=== PATIENT | male | born 1970 | race Caucasian/White ===

== ENCOUNTER 2016-12-01 13:31 | Day surgery (SDC) | payer OTHER ==
[~2016-12-01] VITALS: Ht 193 cm; Wt 151.0 kg
[~2016-12-01 13:31] MED LIST: AMOX-291 PO; BACL20TA PO; FLUT9.9S NS; LEVO175T5 PO; METH-356 PO; ONDA4TAB7 PO; RANI150T8 PO; VARE1TAB21 PO
[2016-12-01 14:12] VITALS: BP 144/85
[2016-12-01] MEDS ORDERED: SODIUM CHLORIDE 0.9% 1,000 ML IV SCH (14:17)
[2016-12-01] MEDS ORDERED: METHADONE 10 MG TABLET PO SCH (17:00)
== END 2016-12-01 17:25 | disposition home or self-care (01) ==
LOC: RAD 13:31
PROVIDERS: ATTEND Neurological Surgery
DX: M48.06 Spinal stenosis, lumbar region (principal)
CPT/HCPCS: 62284; 72132; 77003

== ENCOUNTER → 2016-12-22 | Outpatient (CLI) | payer OTHER ==
[~2016-12-22] MED LIST changes: +AMIT150T PO; +LEVO175T2 PO; +METF500T PO; +Testosterone INJ
[2016-12-22 12:47] LABS: ASPARTATE AMINO TRANSFERASE 24 U/L (15-37); BLOOD UREA NITROGEN 8 mg/dL (7-18)
== END | disposition home or self-care (01) ==
LOC: STAR 11:11
PROVIDERS: ATTEND Neurological Surgery
DX: Z01.811 Encounter for preprocedural respiratory examination (principal); M48.06 Spinal stenosis, lumbar region; E11.9 Type 2 diabetes mellitus without complications; R79.1 Abnormal coagulation profile
CPT/HCPCS: 36415; 71020; 80053; 85025; 85610; 85730; 93005

== ENCOUNTER 2016-12-29 09:46 | Inpatient (IN) | payer OTHER ==
[~2016-12-29] VITALS: Ht 193 cm; Wt 173.0 kg
[~2016-12-29 09:46] MED LIST changes: +BACITRACIN 50,000 UNIT ONE; +BUPIVACAINE/PF-EPI 0.5% 1:200K ONE; +THROMBIN 20,000 UNIT VIAL TP ONE
[2016-12-29] MEDS ORDERED: LACTATED RINGERS 1,000 ML IV SCH (10:07)
[2016-12-29 10:34] VITALS: BP 119/79
[2016-12-29] MEDS ORDERED: KETAMINE 100 MG/ML, 5ML ONE (14:25)
[2016-12-29] MEDS ORDERED: LIDOCAINE/DEX 5% IV,2GM/500ML 500 ML IV ONE (14:28)
[2016-12-29] MEDS ORDERED: PROPOFOL 10 MG/ML, 50ML ONE (15:00)
[2016-12-29] MEDS ORDERED: CEFAZOLIN 1,000 MG ONE (15:00)
[2016-12-29] MEDS ORDERED: ONDANSETRON 2MG/ML, 2ML ONE (15:00)
[2016-12-29] MEDS ORDERED: SUCCINYLCHOLINE 20 MG/ML, 10ML ONE (15:00)
[2016-12-29] MEDS ORDERED: HYDROmorphone 2 MG/ML, 1ML ONE (15:16)
[2016-12-29] MEDS ORDERED: BUPIVACAINE/PF-EPI 0.5% 1:200K INFIL ONE (16:09)
[2016-12-29] MEDS ORDERED: NEOSPORIN OINT, 15GM ONE (17:19)
[2016-12-29] MEDS ORDERED: MIDAZOLAM 1 MG/ML, 2ML ONE (17:51)
[2016-12-29] MEDS ORDERED: PROMETHAZINE 25 MG/ML, 1ML IV PRN (18:30)
[2016-12-29] MEDS ORDERED: EPHEDRINE 50 MG/ML, 1ML IVPush PRN (18:30)
[2016-12-29] MEDS ORDERED: LABETALOL 5MG/ML, 20ML IV PRN (18:30)
[2016-12-29] MEDS ORDERED: HYDROcodone/APAP 7.5-325MG/15ML UDC PO PRN (18:30)
[2016-12-29] MEDS ORDERED: MEPERIDINE/PF 25MG/0.5ML IVPush PRN (18:30)
[2016-12-29] MEDS ORDERED: hydrALAzine 20 MG/ML, 1ML IV PRN (18:30)
[2016-12-29] MEDS ORDERED: ACETAMINOPHEN 325 MG TABLET PO PRN (18:30)
[2016-12-29] MEDS ORDERED: OXYcodone 5 MG/5 ML ORAL.SOL UDC PO PRN (18:30)
[2016-12-29] MEDS ORDERED: FENTANYL PF 100 MCG/2ML IV PRN (18:30)
[2016-12-29] MEDS ORDERED: ONDANSETRON 2MG/ML, 2ML IVPush PRN (18:30)
[2016-12-29] MEDS ORDERED: MIDAZOLAM 1 MG/ML, 2ML IV PRN (18:30)
[2016-12-29] MEDS ORDERED: HYDROmorphone 1 MG/ML, 1ML IV PRN (18:30)
[2016-12-29] MEDS ORDERED: HYDROmorphone PCA 30 MG/30 ML ONE (19:22)
[2016-12-29] MEDS ORDERED: HYDROmorphone PCA 30 MG/30 ML IV PRN (19:30)
[2016-12-29] MEDS ORDERED: ONDANSETRON 2MG/ML, 2ML IV PRN (20:30)
[2016-12-29] MEDS ORDERED: DIPHENHYDRAMINE 50 MG/ML, 1ML IVPush PRN (20:30)
[2016-12-29] MEDS ORDERED: HYDROcodone/APAP 5/325 TABLET PO PRN (20:30)
[2016-12-29] MEDS ORDERED: morphine SULFATE 10 MG/ML, 1ML IV PRN (20:30)
[2016-12-29] MEDS ORDERED: NS + 20MEQ KCL 1,000 ML IV SCH (20:30)
[2016-12-29] MEDS ORDERED: GLUCAGON 1 MG IM PRN (20:30)
[2016-12-29] MEDS ORDERED: PROMETHAZINE 25 MG/ML, 1ML IM PRN (20:30)
[2016-12-29] MEDS ORDERED: OXYcodone/APAP 5/325MG TABLET PO PRN (20:30)
[2016-12-29] MEDS ORDERED: DIPHENHYDRAMINE 50 MG/ML, 1ML IM PRN (20:30)
[2016-12-29] MEDS ORDERED: BISACODYL 10 MG SUPP PR PRN (20:30)
[2016-12-29] MEDS ORDERED: DIPHENHYDRAMINE 50 MG CAPSULE PO PRN (20:30)
[2016-12-29] MEDS ORDERED: DEXTROSE 50%, 50ML SYRINGE IVPush PRN (20:30)
[2016-12-29] MEDS ORDERED: DEXTROSE 4 GM TAB.CHEW PO PRN (20:30)
[2016-12-29] MEDS ORDERED: METHOCARBAMOL 1,000 MG in DEXTROSE 5% 100 ML IV ONE (21:00)
[2016-12-29] MEDS ORDERED: INSULIN REGULAR 100 UNITS/ML, 3ML VIAL SQ-INSULIN SCH (21:00)
[2016-12-29] MEDS: AMITRIPTYLINE 50 MG TABLET PO SCH (21:06)
[2016-12-29] MEDS: FAMOTIDINE 20 MG TABLET PO SCH (21:06)
[2016-12-29] MEDS: metFORMIN XR 500 MG TAB.ER.24H PO SCH (21:08)
[2016-12-29] MEDS: SODIUM CHLORIDE FLUSH 10ML SYR IVF SCH (21:13)
[2016-12-29] MEDS: METHADONE 10 MG TABLET PO SCH (21:13)
[2016-12-29] MEDS: INSULIN ASPART 100 UNITS/ML, PEN SQ-INSULIN SCH (21:23)
[2016-12-30] MEDS: FLUTICASONE NASAL SPRAY 16GM NAS SCH ×3 (00:08→21:00)
[2016-12-30] MEDS: CEFAZOLIN 3,000 MG in SODIUM CHLORIDE 0.9% 100 ML IVPB SCH ×2 (00:45→08:45)
[2016-12-30 04:51] LABS: BLOOD UREA NITROGEN 7 mg/dL (7-18)
[2016-12-30 04:54] LABS: ASPARTATE AMINO TRANSFERASE 53 U/L (15-37)
[2016-12-30] MEDS: METHOCARBAMOL 750 MG in DEXTROSE 5% 100 ML IV SCH ×3 (05:40→21:30)
[2016-12-30] MEDS: LEVOTHYROXINE 175 MCG TABLET PO SCH (05:40)
[2016-12-30] MEDS: INSULIN ASPART 100 UNITS/ML, PEN SQ-INSULIN SCH ×2 (08:00→17:57)
[2016-12-30] MEDS: METHADONE 10 MG TABLET PO SCH ×3 (08:54→22:45)
[2016-12-30] MEDS: SODIUM CHLORIDE FLUSH 10ML SYR IVF SCH ×2 (08:55→21:00)
[2016-12-30] MEDS: SENNA/DOCUSATE TABLET PO SCH (08:55)
[2016-12-30] MEDS ORDERED: FLUTICASONE/VILANTEROL 200-25MCG/INH INH SCH (09:00)
[2016-12-30 17:20] VITALS: BP 135/80
[2016-12-30 19:10] VITALS: BP 128/76
[2016-12-30] MEDS: metFORMIN XR 500 MG TAB.ER.24H PO SCH (22:30)
[2016-12-30] MEDS: ZOLPIDEM 5MG TABLET PO PRN (22:40)
[2016-12-30] MEDS: FAMOTIDINE 20 MG TABLET PO SCH (22:40)
[2016-12-30] MEDS: AMITRIPTYLINE 50 MG TABLET PO SCH (22:40)
[2016-12-31 00:11] VITALS: BP 124/76
[2016-12-31 03:22] VITALS: BP 124/83
[2016-12-31] MEDS: HYDROcodone/APAP 10/325 MG TABLET PO PRN ×4 (03:30→23:17)
[2016-12-31] MEDS: METHOCARBAMOL 750 MG in DEXTROSE 5% 100 ML IV SCH ×3 (06:17→22:51)
[2016-12-31] MEDS: LEVOTHYROXINE 175 MCG TABLET PO SCH (06:17)
[2016-12-31 08:26] VITALS: BP 139/83
[2016-12-31] MEDS: SENNA/DOCUSATE TABLET PO SCH (08:38)
[2016-12-31] MEDS: SODIUM CHLORIDE FLUSH 10ML SYR IVF SCH ×2 (08:38→22:54)
[2016-12-31] MEDS: METHADONE 10 MG TABLET PO SCH ×3 (08:38→22:51)
[2016-12-31] MEDS: INSULIN ASPART 100 UNITS/ML, PEN SQ-INSULIN SCH ×2 (08:38→16:09)
[2016-12-31] MEDS: FLUTICASONE NASAL SPRAY 16GM NAS SCH ×2 (08:39→21:00)
[2016-12-31 14:18] VITALS: BP 134/82
[2016-12-31 18:29] VITALS: BP 118/77
[2016-12-31] MEDS: AMITRIPTYLINE 50 MG TABLET PO SCH (22:51)
[2016-12-31] MEDS: FAMOTIDINE 20 MG TABLET PO SCH (22:51)
[2016-12-31] MEDS: metFORMIN XR 500 MG TAB.ER.24H PO SCH (23:02)
[2016-12-31] MEDS: ZOLPIDEM 5MG TABLET PO PRN (23:17)
[2017-01-01 01:12] VITALS: BP 119/77
[2017-01-01] MEDS: METHOCARBAMOL 750 MG TABLET PO SCH ×3 (05:00→21:41)
[2017-01-01] MEDS: LEVOTHYROXINE 175 MCG TABLET PO SCH (05:11)
[2017-01-01 06:09] LABS: BLOOD UREA NITROGEN 6 mg/dL (7-18)
[2017-01-01 06:35] VITALS: BP 129/85
[2017-01-01] MEDS ORDERED: DEXMEDETOMIDINE 200 MCG/2 ML ONE (06:59)
[2017-01-01] MEDS: INSULIN ASPART 100 UNITS/ML, PEN SQ-INSULIN SCH ×2 (07:28→16:42)
[2017-01-01] MEDS: SENNA/DOCUSATE TABLET PO SCH (08:18)
[2017-01-01] MEDS: METHADONE 10 MG TABLET PO SCH ×3 (08:18→21:41)
[2017-01-01] MEDS: FLUTICASONE NASAL SPRAY 16GM NAS SCH ×2 (08:19→21:40)
[2017-01-01] MEDS: HYDROmorphone 2 MG/ML, 1ML IV PRN ×4 (08:25→23:44)
[2017-01-01] MEDS: SODIUM CHLORIDE FLUSH 10ML SYR IVF SCH ×2 (08:28→21:40)
[2017-01-01] MEDS ORDERED: MIDAZOLAM 1 MG/ML, 2ML ONE (08:59)
[2017-01-01] MEDS ORDERED: HYDROmorphone 2 MG/ML, 1ML ONE (08:59)
[2017-01-01] MEDS ORDERED: FENTANYL PF 250 MCG/5ML ONE (08:59)
[2017-01-01] MEDS ORDERED: EPINEPHRINE 1 MG/ML, 1ML ONE (09:37)
[2017-01-01] MEDS ORDERED: BUPIVACAINE/PF 0.5% ONE (09:37)
[2017-01-01] MEDS ORDERED: THROMBIN 5,000 UNIT VIAL TP ONE (09:37)
[2017-01-01] MEDS ORDERED: BACITRACIN 50,000 UNIT ONE (09:38)
[2017-01-01] MEDS ORDERED: LIDOCAINE/DEX 5% IV,2GM/500ML 500 ML IV PRN (10:00)
[2017-01-01 14:47] VITALS: BP 133/81
[2017-01-01] MEDS: HYDROcodone/APAP 10/325 MG TABLET PO PRN ×3 (17:45→22:47)
[2017-01-01 19:49] VITALS: BP 117/81
[2017-01-01] MEDS: FAMOTIDINE 20 MG TABLET PO SCH (21:41)
[2017-01-01] MEDS: metFORMIN XR 500 MG TAB.ER.24H PO SCH (21:41)
[2017-01-01] MEDS: AMITRIPTYLINE 50 MG TABLET PO SCH (21:42)
[2017-01-02 02:44] VITALS: BP 142/91
[2017-01-02] MEDS: METHOCARBAMOL 750 MG TABLET PO SCH ×3 (05:00→21:44)
[2017-01-02] MEDS: HYDROmorphone 2 MG/ML, 1ML IV PRN ×3 (05:43→19:06)
[2017-01-02] MEDS: LEVOTHYROXINE 175 MCG TABLET PO SCH (05:44)
[2017-01-02 07:25] VITALS: BP 130/71
[2017-01-02] MEDS ORDERED: DEXAMETHASONE 4 MG/ML, 1ML ONE (07:39)
[2017-01-02] MEDS ORDERED: PROPOFOL 10 MG/ML, 50ML ONE (07:39)
[2017-01-02] MEDS ORDERED: METOPROLOL 1 MG/ML, 5ML ONE (07:39)
[2017-01-02] MEDS ORDERED: ONDANSETRON 2MG/ML, 2ML ONE (07:39)
[2017-01-02] MEDS ORDERED: PROPOFOL 10 MG/ML, 20ML ONE (07:39)
[2017-01-02] MEDS ORDERED: CEFAZOLIN 1,000 MG ONE (07:39)
[2017-01-02] MEDS: INSULIN ASPART 100 UNITS/ML, PEN SQ-INSULIN SCH ×2 (08:00→16:55)
[2017-01-02] MEDS: METHADONE 10 MG TABLET PO SCH ×3 (08:42→21:47)
[2017-01-02] MEDS: FLUTICASONE NASAL SPRAY 16GM NAS SCH ×2 (08:42→21:00)
[2017-01-02] MEDS: SENNA/DOCUSATE TABLET PO SCH (08:45)
[2017-01-02] MEDS: SODIUM CHLORIDE FLUSH 10ML SYR IVF SCH ×2 (08:45→21:44)
[2017-01-02] MEDS ORDERED: TESTOSTERONE CYPIONATE 200 MG/ML IM SCH (09:00)
[2017-01-02] MEDS ORDERED: BACITRACIN OINT 500U/GM, 15 GM ONE (09:40)
[2017-01-02] MEDS ORDERED: THROMBIN 20,000 UNIT VIAL TP ONE (09:40)
[2017-01-02] MEDS ORDERED: BUPIVACAINE/PF-EPI 0.5% 1:200K ONE (09:40)
[2017-01-02] MEDS ORDERED: BACITRACIN 50,000 UNIT ONE (09:41)
[2017-01-02] MEDS ORDERED: KETAMINE 10 MG/ML, 20ML ONE (09:47)
[2017-01-02] MEDS ORDERED: FENTANYL PF 250 MCG/5ML ONE (09:47)
[2017-01-02] MEDS ORDERED: MIDAZOLAM 1 MG/ML, 2ML ONE ×2 (09:47→15:12)
[2017-01-02] MEDS ORDERED: BUPIVACAINE/PF-EPI 0.5% 1:200K IM ONE ×3 (11:48→11:49)
[2017-01-02] MEDS ORDERED: OXYcodone 5 MG/5 ML ORAL.SOL UDC PO PRN (12:00)
[2017-01-02] MEDS ORDERED: FENTANYL PF 100 MCG/2ML IV PRN (12:00)
[2017-01-02] MEDS ORDERED: hydrALAzine 20 MG/ML, 1ML IV PRN (12:00)
[2017-01-02] MEDS ORDERED: MEPERIDINE/PF 25MG/0.5ML IVPush PRN (12:00)
[2017-01-02] MEDS ORDERED: PROMETHAZINE 25 MG/ML, 1ML IV PRN (12:00)
[2017-01-02] MEDS ORDERED: ALBUTEROL/IPRATROPIUM 2.5MG/0.5MG, 3 ML NPPB PRN (12:00)
[2017-01-02] MEDS ORDERED: MIDAZOLAM 1 MG/ML, 2ML IV PRN (12:00)
[2017-01-02] MEDS ORDERED: ACETAMINOPHEN 325 MG TABLET PO PRN (12:00)
[2017-01-02] MEDS ORDERED: HYDROmorphone 1 MG/ML, 1ML IV PRN (12:00)
[2017-01-02] MEDS ORDERED: METOPROLOL 1 MG/ML, 5ML IV PRN (12:00)
[2017-01-02] MEDS ORDERED: HYDROmorphone 2 MG/ML, 1ML ONE (12:41)
[2017-01-02] MEDS ORDERED: VANCOMYCIN 1,000 MG ONE (13:38)
[2017-01-02 16:16] LABS: ABG COLLECTION SITE RIGHT RADIAL; COLLATERAL CIRCULATION TESTING NORMAL
[2017-01-02] MEDS ORDERED: SODIUM CHLORIDE 0.9% 1,000 ML IV SCH (17:00)
[2017-01-02] MEDS ORDERED: PROPOFOL 100 ML IV ONE (17:37)
[2017-01-02] MEDS: PROPOFOL 100 ML IV PRN ×2 (17:56→23:34)
[2017-01-02] MEDS ORDERED: PROPOFOL 100 ML IV PRN (18:33)
[2017-01-02] MEDS: ALBUTEROL/IPRATROPIUM 2.5MG/0.5MG, 3 ML INLINE SCH ×2 (19:00→23:00)
[2017-01-02] MEDS ORDERED: PHARMACY MAY ADJ FOR RENAL FX MC SCH (19:00)
[2017-01-02] MEDS ORDERED: LIDOCAINE-MPF 1%, 2ML ENDO PRN (19:00)
[2017-01-02] MEDS ORDERED: MAGNESIUM HYDROXIDE 8%, 30ML UDC PO PRN (20:00)
[2017-01-02] MEDS ORDERED: HYDROmorphone 2 MG/ML, 1ML IM PRN (20:00)
[2017-01-02] MEDS ORDERED: HYDROmorphone 2MG TABLET PO PRN (20:00)
[2017-01-02] MEDS ORDERED: PROMETHAZINE 25 MG/ML, 1ML IM PRN (20:00)
[2017-01-02] MEDS ORDERED: ONDANSETRON 2MG/ML, 2ML IV PRN (20:00)
[2017-01-02] MEDS ORDERED: OXYcodone/APAP 5/325MG TABLET PO PRN (20:00)
[2017-01-02] MEDS ORDERED: HYDROmorphone PCA 30 MG/30 ML IV PRN (20:00)
[2017-01-02] MEDS ORDERED: METHOCARBAMOL 750 MG TABLET PO PRN (20:00)
[2017-01-02] MEDS ORDERED: BISACODYL 10 MG SUPP PR PRN (20:00)
[2017-01-02] MEDS: CEFAZOLIN PMX 1GM/50ML 50 ML IVPB SCH (20:09)
[2017-01-02] MEDS: NS + 20MEQ KCL 1,000 ML IV SCH (20:09)
[2017-01-02] MEDS: INSULIN REGULAR 100 UNITS/ML, 3ML VIAL SQ-INSULIN SCH (21:00)
[2017-01-02] MEDS: metFORMIN XR 500 MG TAB.ER.24H PO SCH (21:00)
[2017-01-02] MEDS: CEFAZOLIN PMX 2GM/50ML 50 ML IV SCH (21:28)
[2017-01-02] MEDS: AMITRIPTYLINE 50 MG TABLET PO SCH (21:45)
[2017-01-02] MEDS: FAMOTIDINE 20 MG TABLET PO SCH (21:45)
[2017-01-02] MEDS: HYDROcodone/APAP 10/325 MG TABLET PO PRN (22:23)
[2017-01-03] MEDS: ALBUTEROL/IPRATROPIUM 2.5MG/0.5MG, 3 ML INLINE SCH ×2 (02:18→07:25)
[2017-01-03] MEDS: PROPOFOL 100 ML IV PRN ×3 (02:23→07:22)
[2017-01-03] MEDS: CEFAZOLIN PMX 1GM/50ML 50 ML IVPB SCH ×2 (04:12→12:12)
[2017-01-03 04:22] LABS: ABG COLLECTION SITE LEFT RADIAL; COLLATERAL CIRCULATION TESTING NORMAL
[2017-01-03 04:38] LABS: BLOOD UREA NITROGEN 12 mg/dL (7-18)
[2017-01-03] MEDS: METHOCARBAMOL 750 MG TABLET PO SCH ×3 (05:33→21:45)
[2017-01-03] MEDS: LEVOTHYROXINE 175 MCG TABLET PO SCH (05:34)
[2017-01-03] MEDS: CEFAZOLIN PMX 2GM/50ML 50 ML IV SCH ×2 (05:34→13:18)
[2017-01-03] MEDS: INSULIN REGULAR 100 UNITS/ML, 3ML VIAL SQ-INSULIN SCH ×3 (07:00→16:00)
[2017-01-03] MEDS: SODIUM CHLORIDE FLUSH 10ML SYR IVF SCH ×2 (07:35→21:43)
[2017-01-03] MEDS: FLUTICASONE NASAL SPRAY 16GM NAS SCH ×2 (07:36→21:43)
[2017-01-03] MEDS: SENNA/DOCUSATE TABLET PO SCH (07:37)
[2017-01-03] MEDS: METHADONE 10 MG TABLET PO SCH ×3 (07:47→20:33)
[2017-01-03] MEDS: NS + 20MEQ KCL 1,000 ML IV SCH (07:50)
[2017-01-03] MEDS: INSULIN ASPART 100 UNITS/ML, PEN SQ-INSULIN SCH ×2 (07:53→17:00)
[2017-01-03] MEDS ORDERED: SENNA/DOCUSATE TABLET PO SCH (09:00)
[2017-01-03] MEDS: HYDROcodone/APAP 10/325 MG TABLET PO PRN ×3 (10:49→20:33)
[2017-01-03] MEDS: ALBUTEROL/IPRATROPIUM 2.5MG/0.5MG, 3 ML NPPB SCH ×2 (14:58→20:25)
[2017-01-03] MEDS: FAMOTIDINE 20 MG TABLET PO SCH (21:46)
[2017-01-03] MEDS: AMITRIPTYLINE 50 MG TABLET PO SCH (21:46)
[2017-01-03] MEDS: metFORMIN XR 500 MG TAB.ER.24H PO SCH (21:46)
[2017-01-04] MEDS: HYDROcodone/APAP 10/325 MG TABLET PO PRN ×4 (00:48→20:23)
[2017-01-04 04:38] LABS: ABG COLLECTION SITE LEFT RADIAL; COLLATERAL CIRCULATION TESTING NORMAL
[2017-01-04 04:53] LABS: BLOOD UREA NITROGEN 10 mg/dL (7-18)
[2017-01-04] MEDS: METHOCARBAMOL 750 MG TABLET PO SCH ×3 (05:03→21:35)
[2017-01-04] MEDS: LEVOTHYROXINE 175 MCG TABLET PO SCH (05:03)
[2017-01-04] MEDS: ALBUTEROL/IPRATROPIUM 2.5MG/0.5MG, 3 ML NPPB SCH (06:50)
[2017-01-04] MEDS: INSULIN ASPART 100 UNITS/ML, PEN SQ-INSULIN SCH ×2 (08:00→16:57)
[2017-01-04] MEDS: METHADONE 10 MG TABLET PO SCH ×4 (08:10→20:24)
[2017-01-04] MEDS: FLUTICASONE NASAL SPRAY 16GM NAS SCH ×2 (08:10→20:24)
[2017-01-04] MEDS: SENNA/DOCUSATE TABLET PO SCH (08:11)
[2017-01-04] MEDS: SODIUM CHLORIDE FLUSH 10ML SYR IVF SCH ×2 (08:11→20:24)
[2017-01-04] MEDS ORDERED: ALBUTEROL/IPRATROPIUM 2.5MG/0.5MG, 3 ML NPPB PRN (15:00)
[2017-01-04] MEDS: MAGNESIUM HYDROXIDE 8%, 30ML UDC PO PRN (16:56)
[2017-01-04 19:14] VITALS: BP 142/89
[2017-01-04] MEDS: metFORMIN XR 500 MG TAB.ER.24H PO SCH (20:25)
[2017-01-04] MEDS: AMITRIPTYLINE 50 MG TABLET PO SCH (20:25)
[2017-01-04] MEDS: FAMOTIDINE 20 MG TABLET PO SCH (20:25)
[2017-01-05] MEDS: HYDROcodone/APAP 10/325 MG TABLET PO PRN ×6 (00:50→22:26)
[2017-01-05 01:00] VITALS: BP 134/78
[2017-01-05] MEDS: ZOLPIDEM 5MG TABLET PO PRN ×2 (01:09→22:26)
[2017-01-05] MEDS: METHOCARBAMOL 750 MG TABLET PO SCH ×3 (05:40→22:26)
[2017-01-05] MEDS: METHADONE 10 MG TABLET PO SCH ×4 (05:46→21:04)
[2017-01-05] MEDS: LEVOTHYROXINE 175 MCG TABLET PO SCH (05:46)
[2017-01-05] MEDS: MAGNESIUM HYDROXIDE 8%, 30ML UDC PO PRN (06:06)
[2017-01-05 06:17] LABS: BLOOD UREA NITROGEN 10 mg/dL (7-18)
[2017-01-05] MEDS: INSULIN ASPART 100 UNITS/ML, PEN SQ-INSULIN SCH ×2 (07:53→16:29)
[2017-01-05 08:11] VITALS: BP 125/78
[2017-01-05] MEDS: SENNA/DOCUSATE TABLET PO SCH (09:44)
[2017-01-05] MEDS: POTASSIUM CHLORIDE 20 MEQ TAB.ER.PRT PO SCH ×2 (09:45→16:29)
[2017-01-05] MEDS: FLUTICASONE NASAL SPRAY 16GM NAS SCH ×2 (09:45→21:04)
[2017-01-05] MEDS: SODIUM CHLORIDE FLUSH 10ML SYR IVF SCH ×2 (09:46→21:04)
[2017-01-05 11:51] VITALS: BP 112/73
[2017-01-05 19:32] VITALS: BP 117/82
[2017-01-05] MEDS: FAMOTIDINE 20 MG TABLET PO SCH (21:04)
[2017-01-05] MEDS: metFORMIN XR 500 MG TAB.ER.24H PO SCH (21:05)
[2017-01-05] MEDS: AMITRIPTYLINE 50 MG TABLET PO SCH (21:05)
[2017-01-06 00:24] VITALS: BP 119/70
[2017-01-06] MEDS: HYDROcodone/APAP 10/325 MG TABLET PO PRN ×3 (02:17→09:56)
[2017-01-06 05:09] LABS: BLOOD UREA NITROGEN 9 mg/dL (7-18)
[2017-01-06] MEDS: METHOCARBAMOL 750 MG TABLET PO SCH (06:09)
[2017-01-06] MEDS: METHADONE 10 MG TABLET PO SCH ×2 (06:09→09:56)
[2017-01-06] MEDS: LEVOTHYROXINE 175 MCG TABLET PO SCH (06:10)
[2017-01-06] MEDS ORDERED: POTASSIUM CHLORIDE 20 MEQ TAB.ER.PRT PO ONE (07:30)
[2017-01-06] MEDS: INSULIN ASPART 100 UNITS/ML, PEN SQ-INSULIN SCH (08:07)
[2017-01-06] MEDS: SENNA/DOCUSATE TABLET PO SCH (08:40)
[2017-01-06] MEDS: SODIUM CHLORIDE FLUSH 10ML SYR IVF SCH (08:40)
[2017-01-06] MEDS: FLUTICASONE NASAL SPRAY 16GM NAS SCH (08:40)
[2017-01-06 09:35] VITALS: BP 117/78
[2017-01-06] MEDS ORDERED: HYDR-3307 PO (10:11)
[2017-01-06] MEDS ORDERED: METH750T87 PO (10:12)
[2017-01-06] MEDS ORDERED: SENN1TAB7 PO (10:15)
[2017-01-06] MEDS ORDERED: CALC300T4 PO (10:17)
[2017-01-06] MEDS ORDERED: CHOL10003 PO (10:18)
== END 2017-01-06 10:32 | disposition home or self-care (01) | DRG 453 ==
LOC: ORIP 09:46 → CCU 19:57 → 4NOR 12-30 17:27 → ICU 01-02 15:39 → 4NOR 01-04 18:22 → DCLOUNGE 01-06 10:09
PROVIDERS: ADMIT Neurological Surgery
PROC: 5A09357 Assistance with Respiratory Ventilation, Less than 24 Consecutive Hours, Continuous Positive Airway Pressure (ICD-10-PCS; 2016-12-29)
PROC: 0SP004Z Removal of Internal Fixation Device from Lumbar Vertebral Joint, Open Approach (ICD-10-PCS; principal; 2016-12-29 11:30)
PROC: 0SG0071 Fusion of Lumbar Vertebral Joint with Autologous Tissue Substitute, Posterior Approach, Posterior Column, Open Approach (ICD-10-PCS; 2017-01-02)
PROC: 0SB20ZZ Excision of Lumbar Vertebral Disc, Open Approach (ICD-10-PCS; 2017-01-02)
PROC: 01NB0ZZ Release Lumbar Nerve, Open Approach (ICD-10-PCS; 2017-01-02)
PROC: 0T9B70Z Drainage of Bladder with Drainage Device, Via Natural or Artificial Opening (ICD-10-PCS; 2017-01-02)
PROC: 0SG00A0 Fusion of Lumbar Vertebral Joint with Interbody Fusion Device, Anterior Approach, Anterior Column, Open Approach (ICD-10-PCS; 2017-01-02 10:00)
DX: M43.16 Spondylolisthesis, lumbar region (principal); J96.01 Acute respiratory failure with hypoxia; Z68.41 Body mass index [BMI] 40.0-44.9, adult; M48.06 Spinal stenosis, lumbar region; M53.2X6 Spinal instabilities, lumbar region; G89.4 Chronic pain syndrome; E03.9 Hypothyroidism, unspecified; E11.9 Type 2 diabetes mellitus without complications; E66.01 Morbid (severe) obesity due to excess calories; E29.1 Testicular hypofunction; G47.33 Obstructive sleep apnea (adult) (pediatric); K21.9 Gastro-esophageal reflux disease without esophagitis; I10 Essential (primary) hypertension; Z53.8 Procedure and treatment not carried out for other reasons; M54.16 Radiculopathy, lumbar region; Z79.891 Long term (current) use of opiate analgesic; Z88.2 Allergy status to sulfonamides; Z88.5 Allergy status to narcotic agent
CPT/HCPCS: 36415; 36600; 71010; 72100; 80048; 80053; 81001; 82803; 82962; 83735; 84478; 85025; 87070; 87081; 87086; 87205; 93005; 94002; 94003; 94640; C1713; C1767; C9359; J0171; J0690; J1100; J1170; J1815; J2001; J2250; J2405; J2704; J3010; J3370; J3480; J3490; J7620; C1762; J0330; J2800; J7030; J7120

== ENCOUNTER → 2017-12-13 | Outpatient (CLI) | payer OTHER ==
[~2017-12-13] MED LIST changes: -BACITRACIN 50,000 UNIT ONE; -BUPIVACAINE/PF-EPI 0.5% 1:200K ONE; +CALC300T4 PO; +CHOL10003 PO; +HYDR-3307 PO; +METH750T87 PO; +RANI150T23 PO; -RANI150T8 PO; +SENN1TAB7 PO; -THROMBIN 20,000 UNIT VIAL TP ONE
== END | disposition home or self-care (01) ==
LOC: RAD 09:19
PROVIDERS: ATTEND Neurological Surgery
DX: M54.5 Low back pain (principal)
CPT/HCPCS: 72110